=== PATIENT | female | born 1990 | race Two or more races ===

== ENCOUNTER 2017-03-13 22:32 | Outpatient (CLI) | payer MEDICAID ==
[~2017-03-13] VITALS: Ht 172.7 cm; Wt 70.5 kg
[2017-03-13 22:46] VITALS: BP 111/67
[2017-03-13 22:55] LABS: DAU SCREEN DISCLAIMER
== END 2017-03-13 23:22 | disposition home or self-care (01) ==
LOC: LDOP 22:32
PROVIDERS: ATTEND Obstetrics & Gynecology
DX: O62.9 Abnormality of forces of labor, unspecified (principal); Z3A.37 37 weeks gestation of pregnancy
CPT/HCPCS: 59025; 80307; 81003; 87086; 99201; G0463; G0479

== ENCOUNTER 2017-03-14 16:22 | Inpatient (IN) | payer MEDICAID ==
[~2017-03-14] VITALS: Ht 172.7 cm; Wt 70.5 kg
[2017-03-14] MEDS ORDERED: OXYTOCIN 30U/ 0.9% NaCL 500ML 500 ML IV ONE (19:04)
[2017-03-14] MEDS ORDERED: LACTATED RINGERS 1,000 ML IV SCH (19:04)
[2017-03-14] MEDS ORDERED: OXYTOCIN 30U/ 0.9% NaCL 500ML 500 ML ONE (19:10)
[2017-03-14] MEDS ORDERED: NEWBORN KIT ONE (19:10)
[2017-03-14] MEDS ORDERED: LIDOCAINE 1%, 20ML ONE ×2 (19:25→20:01)
[2017-03-14] MEDS ORDERED: MISOPROSTOL 200 MCG TABLET ONE (19:26)
[2017-03-14] MEDS ORDERED: TERBUTALINE 1 MG/ML, 1ML IVPush PRN (19:30)
[2017-03-14] MEDS ORDERED: FENTANYL PF 100 MCG/2ML IVPush PRN (19:30)
[2017-03-14] MEDS ORDERED: FENTANYL PF 100 MCG/2ML IV PRN (19:30)
[2017-03-14] MEDS ORDERED: ONDANSETRON 2MG/ML, 2ML IVPush PRN (19:30)
[2017-03-14 19:32] LABS: HEMATOCRIT 45.2 % (34.6-47.8); WHITE BLOOD COUNT 17.6 x10^3/uL (3.4-10)
[2017-03-14 19:50] LABS: DIFF TOTAL CELLS COUNTED 100 CELL DIFF
[2017-03-14 19:55] LABS: VERIFY COUNTS? YES
[2017-03-14] MEDS: OXYTOCIN 30U/ 0.9% NaCL 500ML 500 ML IV SCH (20:42)
[2017-03-14 20:49] VITALS: BP 110/68
[2017-03-14] MEDS ORDERED: OXYcodone/APAP 5/325MG TABLET PO PRN ×2 (21:00)
[2017-03-14] MEDS ORDERED: MISOPROSTOL 200 MCG TABLET PR PRN (21:00)
[2017-03-14] MEDS ORDERED: ONDANSETRON 2MG/ML, 2ML IV PRN (21:00)
[2017-03-14] MEDS ORDERED: ACETAMINOPHEN 325 MG TABLET PO PRN ×2 (21:00)
[2017-03-14] MEDS ORDERED: OXYTOCIN 10 UNITS/ML, 1ML IM PRN (21:00)
[2017-03-14] MEDS ORDERED: METHYLERGONOVINE 0.2 MG/ML IM PRN (21:00)
[2017-03-14 22:30] VITALS: BP 101/62
[2017-03-15] MEDS: IBUPROFEN 600 MG TABLET PO PRN ×3 (00:14→20:04)
[2017-03-15 03:25] VITALS: BP 93/59
[2017-03-15 05:26] LABS: HEMATOCRIT 37.1 % (34.6-47.8); HEMOGLOBIN 12.4 g/dL (11.7-16.4); WHITE BLOOD COUNT 16.9 x10^3/uL (3.4-10)
[2017-03-15] MEDS: OXYTOCIN 30U/ 0.9% NaCL 500ML 500 ML IV SCH (06:42)
[2017-03-15 06:47] LABS: DIFF TOTAL CELLS COUNTED 100 CELL DIFF; VERIFY COUNTS? YES
[2017-03-15 08:00] VITALS: BP 103/65
[2017-03-15] MEDS ORDERED: PRENATAL VIT/IRON/FA 1 EACH TABLET PO SCH (09:00)
[2017-03-15] MEDS: DOCUSATE 100 MG CAPSULE PO PRN ×2 (09:57→20:04)
[2017-03-15 20:20] VITALS: BP 95/69
== END 2017-03-15 21:30 | disposition home or self-care (01) | DRG 775 ==
LOC: LDOP 16:22 → LDIP 19:21 → 2NW 22:10
PROVIDERS: ADMIT Obstetrics & Gynecology; ATTEND Obstetrics & Gynecology
PROC: 10E0XZZ Delivery of Products of Conception, External Approach (ICD-10-PCS; principal; 2017-03-14)
PROC: 0KQM0ZZ Repair Perineum Muscle, Open Approach (ICD-10-PCS; 2017-03-14)
DX: O69.81X0 Labor and delivery complicated by cord around neck, without compression, not applicable or unspecified (principal); O70.1 Second degree perineal laceration during delivery; Z37.0 Single live birth; Z3A.38 38 weeks gestation of pregnancy
CPT/HCPCS: 36415; 85025; 86850; 86900; J2590; J7120

== ENCOUNTER 2019-03-04 01:13 | Emergency (ER) | payer MEDICAID ==
[~2019-03-04] VITALS: Ht 160 cm; Wt 60.0 kg
[2019-03-04 02:40] LABS: HCG UR SG 1.034 (1.003-1.030); MICROSCOPIC NOT IND
[2019-03-04 02:42] LABS: CULTURE INDICATED? NO
--- NOTE | 2019-03-04 03:16 | NUR ---
PT. REPORTS EPIGASTRIC ABD PAIN ALL DAY TODAY. C/O NAUSEA. DENIES VOMITING OR DIARRHEA. DENIES DYSURIA; URINE SAMPLE COMPLETED ALREADY. PT. SKIN PWD. NO DISTRESS NOTED. FAMILY AT BS FOR SUPPORT. CALL LIGHT IN REACH. CONTINUOUS PULSE OX ABD B/P MONITORS IN PLACE.
[2019-03-04] MEDS ORDERED: MAALOX/HYOSCYAMINE/LIDOCAINE 45 ML BTL PO ONE (03:30)
[2019-03-04] MEDS ORDERED: MAALOX/HYOSCYAMINE/LIDOCAINE 45 ML BTL ONE (03:33)
[2019-03-04 03:52] LABS: BASOPHILS # (AUTO) 0.04 x10^3/uL (0-0.1); BASOPHILS % (AUTO) 0 % (0-1); EOSINOPHILS # (AUTO) 0.34 x10^3/uL (0-0.4); EOSINOPHILS % (AUTO) 4 % (1-7); LYMPHOCYTES # (AUTO) 1.46 x10^3/uL (1-3.4); LYMPHOCYTES % (AUTO) 15 % (22-44); MD NO; MEAN CORPUSCULAR HEMOGLOBIN 29.2 pg (27.0-34.8); MEAN CORPUSCULAR VOLUME 88.6 fL (80-100); MEAN PLATELET VOLUME 7.7 fL (7.4-10.4); MONOCYTES # (AUTO) 0.57 x10^3/uL (0.2-0.8); MONOCYTES % (AUTO) 6 % (2-9); NEUTROPHILS # (AUTO) 7.55 x10^3/uL (1.8-6.8); NEUTROPHILS % (AUTO) 76 % (42-75); PLATELET COUNT 249 x10^3/uL (130-400); RED BLOOD COUNT 5.16 x10^6/uL (3.82-5.3); RED CELL DISTRIBUTION WIDTH 13.2 % (9.6-15.2)
[2019-03-04 04:04] LABS: ALBUMIN 3.7 g/dL (3.4-5.0); ANION GAP 7 mmol/L (5-15); CALCIUM 8.6 mg/dL (8.5-10.1); CHLORIDE 108 mmol/L (98-107)
[2019-03-04 04:12] LABS: ALANINE AMINOTRANSFERASE 19 U/L (12-78); ALKALINE PHOSPHATASE 69 U/L (45-117); BILIRUBIN,TOTAL 0.5 mg/dL (0.2-1.0); CREATININE 0.71 mg/dL (0.55-1.02); TOTAL PROTEIN 7.6 g/dL (6.4-8.2)
--- NOTE | 2019-03-04 05:21 | NUR ---
SPOKE WITH RADIOLOGY, THEY STATED THEY WILL CALL IN NM FOR HIDA SCAN
--- NOTE | 2019-03-04 05:21 | NUR ---
PT. UPDATED ON POC AND FURTHER IMAGING.
--- NOTE | 2019-03-04 05:28 | NUR ---
EDTA TO BS FOR IV PLACEMENT FOR HIDA SCAN.
--- NOTE | 2019-03-04 06:23 | NUR ---
PT. DENIES PAIN AT THIS TIME. RESTING ON GURNEY WITH NO DISTRESS. PER CT CONTROL DESK IT WAS OK BY DR. BOOTHE FOR HIDA SCAN TO BE DONE WHEN NM TEAM COMES IN AT 0630. PT. UPDATED ON THIS. DENIES NEEDS AT THIS TIME. FAMILY REMAINS AT FOR SUPPORT.
--- NOTE | 2019-03-04 06:58 | NUR ---
RECEIVED REPORT FROM SARAH, ASSUME CARE OF PT AT THIS TIME. DR BOOTHE IN TO SEE PT. CALL BY DR BOOTHE TO NUC MED, NUC MED AVAILABLE AT THIS TIME.
--- NOTE | 2019-03-04 08:04 | NUR ---
PT TO NUC MED FOR HIDA SCAN.
[2019-03-04] MEDS ORDERED: SINCALIDE (KINEVAC) 5 MCG ONE (08:59)
--- NOTE | 2019-03-04 09:50 | NUR ---
PT BACK FROM HIDA SCAN. AWAITING RESULTS.
[2019-03-04 10:43] VITALS: BP 128/71
== END 2019-03-04 10:45 | disposition home or self-care (01) ==
LOC: ED 06:27
DX: K29.00 Acute gastritis without bleeding (principal); K59.00 Constipation, unspecified
CPT/HCPCS: 36415; 74021; 76700; 78227; 80053; 81003; 81025; 83690; 84703; 85025; 99284; A9537; J2805